=== PATIENT | male | born 1975 | race African-American/Black ===

== ENCOUNTER 2018-01-01 21:51 | Emergency (ER) | payer SELFPAY ==
[~2018-01-01] VITALS: Ht 182.9 cm; Wt 96.0 kg
[2018-01-01 22:44] VITALS: BP 118/69
== END 2018-01-01 23:03 | disposition home or self-care (01) ==
LOC: ER 22:58
DX: L03.312 Cellulitis of back [any part except buttock and flank] (principal)
CPT/HCPCS: 99283

== ENCOUNTER 2024-03-11 15:57 | Emergency (ER) | payer SELFPAY ==
[~2024-03-11] VITALS: Ht 182.9 cm; Wt 98.0 kg
[2024-03-11 16:06] VITALS: TEMP 98.7; O2SAT 99
[2024-03-11] MEDS ORDERED: TETANUS, DIPHTHERIA, PERTUSSIS VAC/PF 0.5ML (>10YR OLD) IM ONE (20:45)
[2024-03-11] MEDS ORDERED: SULF1TAB48 MT (21:49)
[2024-03-11] MEDS ORDERED: CEPH500C2 MT (21:49)
[2024-03-11] MEDS: BACITRACIN ZINC OINT UDPKT TOP ONE (22:28)
[2024-03-11] MEDS: LIDOCAINE HCL/PF 1% 10 MG/ML 5ML VIAL INFIL ONE (22:28)
[2024-03-11 22:29] VITALS: BP 128/68; PULSE 88; RESP 18; O2SAT 99
== END 2024-03-11 22:30 | disposition home or self-care (01) ==
LOC: ER 15:57
DX: L02.212 Cutaneous abscess of back [any part, except buttock and flank] (principal)
CPT/HCPCS: 10060; 99283; Z7610 ×4; 90715